=== PATIENT | female | born 1995 | race African-American/Black ===

== ENCOUNTER 2017-01-05 09:28 | Emergency (ER) | payer MEDICAID ==
[~2017-01-05] VITALS: Ht 154.9 cm; Wt 66.8 kg
[2017-01-05 09:35] VITALS: BP 121/76
== END 2017-01-05 09:59 | disposition home or self-care (01) ==
LOC: ED 09:53
DX: S00.561A Insect bite (nonvenomous) of lip, initial encounter (principal); W57.XXXA Bitten or stung by nonvenomous insect and other nonvenomous arthropods, initial encounter; Y93.89 Activity, other specified; Y92.89 Other specified places as the place of occurrence of the external cause; Y99.8 Other external cause status
CPT/HCPCS: 99281